=== PATIENT | female | born 1965 | race Caucasian/White ===

== ENCOUNTER 2017-10-27 08:24 | Outpatient (CLI) | payer OTHER ==
--- NOTE | 2017-10-27 21:31 | ULT ---
RIGHT UPPER QUADRANT ULTRASOUND 10/27/17 Ultrasonography of the right upper quadrant was performed for evaluation of pain. The liver is normal in appearance and size. There are no dilated ducts. The gallbladder contains no signs of stones or w all thickening. The common bile duct was a normal 4 mm in caliber. The right kidney appears normal an d is 11.6 cm long. Pancreas was unremarkable. IMPRESSION: Unremarkable right upper quadrant ultrasound. POS: HOME
== END 2017-10-27 08:25 | disposition home or self-care (01) ==
LOC: BURULT 08:24
PROVIDERS: ATTEND Family Medicine
DX: R10.11 Right upper quadrant pain (principal)
CPT/HCPCS: 76705

== ENCOUNTER 2020-04-16 09:20 | Emergency (ER) | payer OTHER ==
[2020-04-16] MEDS ORDERED: Ibuprofen 200 MG TAB ONE (09:40)
[2020-04-16] MEDS ORDERED: Ondansetron ODT 4 MG TAB ONE (09:40)
[2020-04-16] MEDS ORDERED: Cyclobenzaprine 10 MG TAB ONE (09:40)
== END 2020-04-16 09:57 | disposition home or self-care (01) ==
LOC: BURERS 09:20
DX: G44.209 Tension-type headache, unspecified, not intractable (principal); G43.909 Migraine, unspecified, not intractable, without status migrainosus
CPT/HCPCS: 99283; Q0162

== ENCOUNTER 2022-11-21 15:21 | Emergency (ER) | payer BC ==
[2022-11-21] MEDS ORDERED: Tetracaine 0.5% PF 4 ML BOT ONE (15:42)
[2022-11-21] MEDS ORDERED: Fluorescein Opthalmic Strip ONE (15:42)
[2022-11-21] MEDS ORDERED: Neomycin-Polymyxin-Hc 7.5 ML BOT ONE (16:06)
== END 2022-11-21 16:15 | disposition home or self-care (01) ==
LOC: BURERS 15:21
DX: H10.9 Unspecified conjunctivitis (principal)
CPT/HCPCS: 99283

== ENCOUNTER 2023-11-25 17:33 | Outpatient (CLI) | payer BC, OTHER | END 2023-11-25 17:34 | disposition home or self-care (01) | LOC: BURRAD 17:33 | PROVIDERS: ATTEND Family Medicine | DX: M25.532 Pain in left wrist (principal) ==